=== PATIENT | male | born 1985 | race American Indian/Alaskan Native ===

== ENCOUNTER 2020-01-05 10:32 | Outpatient (CLI) | payer OTHER ==
[2020-01-05 11:22] LABS: Blood Urea Nitrogen 10 mg/dL (9-20)
--- NOTE | 2020-01-05 13:59 | Cat Scan Report ---
CT ABDOMEN AND PELVIS WITHOUT CONTRAST HISTORY: ABDOMINAL PAIN COMPARISON: None. TECHNIQUE: Axial CT images were obtained through the abdomen and pelvis without IV contrast. Sagittal and coronal reformatted images. All CT scans at this location are performed using CT dose reduction for ALARA by means of automated exposure control. Please note this study was ordered with IV contrast although IV access could not be obtained. FINDINGS: CT ABDOMEN: Lung Bases: Clear. Liver: Moderate hepatic steatosis is identified. No focal liver lesion. Biliary: No significant abnormality. Spleen: No significant abnormality. Unenlarged. Pancreas: No significant abnormality. Adrenals: No significant abnormality. Kidneys: A 3 mm calyceal stone is identified at the superior pole the left kidney. The kidneys and co llecting systems are unremarkable otherwise. Lymphatics: There are a few mildly prominent lymph nodes in the right inguinal chain measuring up to 1.2 cm in short axis. No intra-abdominal or pelvic adenopathy is appreciated. Vasculature: No significant abnormality. Bowel/Peritoneum: No significant abnormality. No free air. No free fluid. Normal appendix. CT PELVIS: : No significant abnormality. Osseous Structures: No significant abnormality. Additional Findings: None IMPRESSION: No acute process is identified in the abdomen or pelvis. Hepatic steatosis. Left renal stone, nonobstructing. Slightly prominent right inguinal lymph nodes as described. Signer Name: Chip Mccabe Jr, MD Signed: 01/05/2020 1:54 PM Workstation Name: [id number]
== END 2020-01-05 10:33 | disposition home or self-care (01) ==
LOC: CT 10:32
PROVIDERS: ATTEND Surgery Vascular Surgery
DX: K76.0 Fatty (change of) liver, not elsewhere classified (principal); N20.0 Calculus of kidney
CPT/HCPCS: 36415; 74176; 74177; 82565; 84520; Q9967